=== PATIENT | male | born 1965 | race Caucasian/White ===

== ENCOUNTER 2018-11-16 11:51 | Emergency (ER) | payer MEDICAID ==
[~2018-11-16] VITALS: Ht 177.8 cm; Wt 79.5 kg
[~2018-11-16 11:51] MED LIST: DIPH103G TP
[2018-11-16 12:37] VITALS: BP 144/84
== END 2018-11-16 15:08 | disposition home or self-care (01) ==
LOC: ER 11:52
DX: R20.2 Paresthesia of skin (principal); F15.90 Other stimulant use, unspecified, uncomplicated; E11.9 Type 2 diabetes mellitus without complications; M19.90 Unspecified osteoarthritis, unspecified site; F17.200 Nicotine dependence, unspecified, uncomplicated; Z86.19 Personal history of other infectious and parasitic diseases; Z59.0 Homelessness; Z56.0 Unemployment, unspecified; Z79.899 Other long term (current) drug therapy
CPT/HCPCS: 99281

== ENCOUNTER 2019-01-22 12:08 | Emergency (ER) | payer MEDICAID ==
[2019-01-22] MEDS ORDERED: ketorolac trometh. 30mg/ml inj. IV ONE (14:15)
[2019-01-22] MEDS ORDERED: METH500T PO ×2 (14:19→14:24)
[2019-01-22 14:30] VITALS: BP 162/92
== END 2019-01-22 14:34 | disposition home or self-care (01) ==
LOC: ER 12:08
DX: G89.29 Other chronic pain (principal); M79.601 Pain in right arm; M54.2 Cervicalgia; E11.9 Type 2 diabetes mellitus without complications; M19.90 Unspecified osteoarthritis, unspecified site; F15.90 Other stimulant use, unspecified, uncomplicated; F10.99 Alcohol use, unspecified with unspecified alcohol-induced disorder; Z86.19 Personal history of other infectious and parasitic diseases; Z56.0 Unemployment, unspecified; Z59.0 Homelessness; Z79.899 Other long term (current) drug therapy; Y90.9 Presence of alcohol in blood, level not specified
CPT/HCPCS: 96374; 99283; J1885